=== PATIENT | female | born 2000 | race Caucasian/White ===

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

== ENCOUNTER 2022-06-16 10:52 | Emergency (ER) | payer MEDICAID ==
[~2022-06-16] VITALS: Ht 157.5 cm; Wt 59.0 kg
[2022-06-16 11:47] LABS: CLARITY URINE CLEAR (CLEAR); COLOR URINE YELLOW (YELLOW); KETONES URINE NEGATIVE (NEGATIVE); LEUKOCYTE ESTERASE URINE NEGATIVE (NEGATIVE); NITRITE URINE NEGATIVE (NEGATIVE); OCCULT BLOOD URINE 3+ (NEGATIVE); PH URINE 8.5 (4.5-8.0); PROTEIN URINE 1+ (NEGATIVE); SPECIFIC GRAVITY URINE 1.024 (1.005-1.030); UROBILINOGEN URINE 0.2 E.U./dL (0.2-1.0)
[2022-06-16 11:55] LABS: HEMATOCRIT 41.5 % (36.0-48.0); HEMOGLOBIN 13.5 g/dL (12.0-16.0); MEAN CORPUSCULAR HEMOGLOBIN 24.1 pg (28.0-32.0); MEAN CORPUSCULAR VOLUME 74.1 fL (81.0-99.0); PLATELET 397 x1000/uL (130-400); RED CELL DISTRIBUTION WIDTH 15.4 % (11.6-14.6)
[2022-06-16 12:04] LABS: CHLORIDE 106 mEq/L (98-107)
[2022-06-16] MEDS ORDERED: ONDANSETRON HCL 4MG/2ML INJ IV STA (12:37)
[2022-06-16] MEDS ORDERED: SODIUM CHLORIDE 0.9% 1,000 ML IV ONE ×2 (12:45→15:45)
[2022-06-16 14:28] LABS: HEMATOCRIT. 36.7 % (36.0-48.0); HEMOGLOBIN. 12.3 g/dL (12.0-16.0); MEAN CORPUSCULAR HEMOGLOBIN 24.8 pg (28.0-32.0); MEAN CORPUSCULAR VOLUME 74.3 fL (81.0-99.0); MEAN PLATELET VOLUME 7.9 fl (7.4-10.4); PLATELET 313 x1000/uL (130-400); RED BLOOD CELL COUNT 4.94 mill/uL (4.2-5.4); RED CELL DISTRIBUTION WIDTH 15.3 % (11.6-14.6)
[2022-06-16 14:32] LABS: CHLORIDE 105 mEq/L (98-107)
[2022-06-16 14:40] LABS: HCG SCREEN NEGATIVE
[2022-06-16 16:45] LABS: PLATELET ESTIMATE NORMAL
[2022-06-16] MEDS ORDERED: ONDA4TAB50 PO (16:52)
[2022-06-16 17:00] VITALS: BP 107/61
== END 2022-06-16 17:29 | disposition home or self-care (01) ==
LOC: ER 11:03
DX: R11.2 Nausea with vomiting, unspecified (principal); R19.7 Diarrhea, unspecified; R10.13 Epigastric pain
CPT/HCPCS: 36415; 80053; 81003; 81025; 83690; 84703; 85025; 85027; 96361; 96374; 99283; J2405; J7030